=== PATIENT | female | born 1995 | race Hispanic/Latino ===

== ENCOUNTER 2018-11-15 11:53 | Observation (INO) | payer SELFPAY ==
[2018-11-15] MEDS ORDERED: HYDROCODONE/APAP 5/325 MG TAB ONE (12:39)
[2018-11-15] MEDS ORDERED: ONDANSETRON 4 MG/2 ML VIAL ONE (12:42)
[2018-11-15] MEDS ORDERED: MORPHINE 4 MG/ML SYR ONE (12:42)
[2018-11-15] MEDS ORDERED: NA CHLORIDE 0.9% 1,000 ML ONE (12:42)
[2018-11-15] MEDS ORDERED: CLINDAMYCIN 600MG/D5W 600 MG/50 ML BAG IV ONE (12:42)
--- NOTE | 2018-11-15 12:58 | ER ---
Nurse's Notes [facility] Name: Jennifer Lucia Age: 23 yrs Sex: Female : 1995 Arrival Date: 11/15/2018 Time: 11:55 Bed 15 Private MD: Diagnosis: Cutaneous abscess of vulva Presentation: 11/15 12:03 Presenting complaint: Patient states: Left sided labia pain and swelling, reports this sg started about 2 days ago, denies any bleeding or discharge, no urinary symptoms reported, pt denies any injury or trauma to the area. Transition of care: patient was not received from another setting of care. Onset of symptoms was November 15, 2018. Risk Assessment: Do you want to hurt yourself or someone else? Patient reports no desire to harm self or others. Initial Sepsis Screen: Does the patient meet any 2 criteria? HR > 90 bpm. Does the patient have a suspected source of infection? Yes: Skin breakdown/wound. Care prior to arrival: None. 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 - Social history:: Smoking status: Patient/guardian denies using tobacco. - Ebola Screening: : Patient negative for fever greater than or equal to 101.5 degrees Fahrenheit, and additional compatible Ebola Virus Disease symptoms Patient denies exposure to infectious person Patient denies travel to an Ebola-affected area in the 21 days before illness onset No symptoms or risks identified at this time. Screenin:05 Abuse screen: Denies threats or abuse. Nutritional screening: No deficits noted. rb1 Tuberculosis screening: No symptoms or risk factors identified. Fall Risk None identified. Assessment: 12:05 General: Appears uncomfortable, Behavior is calm, cooperative, Denies fever. Pain: rb1 Complains of pain in vaginal Pain currently is 3 out of 10 on a pain scale. Pain began . Neuro: Level of Consciousness is awake, alert, obeys commands, Oriented to person, place, time, situation. Cardiovascular: Capillary refill < 3 seconds is brisk in bilateral fingers. Respiratory: Airway is patent Respiratory effort is even, unlabored, Respiratory pattern is regular, symmetrical. GI: No signs and/or symptoms were reported involving the gastrointestinal system. : Reports vaginal pain and swelling, denies discharge. Derm: Skin is pink, warm \T\ dry. Musculoskeletal: Range of motion: intact in all extremities. 13:00 Reassessment: Patient appears in no apparent distress at this time. No changes from rb1 previously documented assessment. Family at bedside. 14:00 Reassessment: Patient appears in no apparent distress at this time. Patient and/or rb1 family updated on plan of care and expected duration. Pain level reassessed. Patient is alert, oriented x 3, equal unlabored respirations, skin warm/dry/pink. pain 0/10. 14:35 Reassessment: Tried to call report but they asked me if they could call me back because rb1 they weren't sure who was taking the pt. 14:53 Reassessment: Called report to DIOGENES Girard. Information from the [facility] was given. All rb1 questions asked and answered. 15:00 Reassessment: Patient appears in no apparent distress at this time. No changes from rb1 previously documented assessment. Family at bedside. Patient states feeling better. 15:10 Reassessment: Waiting for someone to be available to take the pt. to the floor. rb1 15:45 Reassessment: Patient appears in no apparent distress at this time. Patient and/or rb1 family updated on plan of care and expected duration. Pain level reassessed. Patient is alert, oriented x 3, equal unlabored respirations, skin warm/dry/pink. Patient denies pain at this time. Vital Signs: 12:06 BP 122 / 85; Pulse 134; Resp 17; Pulse Ox 100% on R/A; Weight 49.9 kg; Pain 7/10; sg 13:55 Temp 98.6(O); dh3 14:00 BP 105 / 76; Pulse 91; Resp 16; Pulse Ox 100% on R/A; Pain 0/10; rb1 15:00 BP 103 / 72; Pulse 88; Resp 16; Pulse Ox 100% on R/A; Pain 0/10; rb1 15:45 BP 100 / 70; Pulse 85; Resp 15; Pulse Ox 98% on R/A; Pain 0/10; rb1 ED Course: 11:55 Patient arrived in ED. as 11:59 Jayda Trujillo [facility]C [facility] kb 11:59 Javier Sidhu MD is Attending Physician. kb 12:03 Arm band placed on. sg 12:05 Patient has correct armband on for positive identification. Bed in low position. Call rb1 light in reach. Side rails up X 1. Pulse ox on. NIBP on. Warm blanket given. 12:06 Triage completed. sg 12:17 Kala Flores, DIOGENES is Primary Nurse. rb1 12:45 Inserted saline lock: 22 gauge in left antecubital area, using aseptic technique. Blood rb1 collected. 12:57 Arlene Valenzuela MD is Hospitalizing Provider. kb 13:03 Wound Culture Sent. rb1 15:45 No provider procedures requiring assistance completed. Patient admitted, IV remains in rb1 place. Administered Medications: 12:50 Drug: morphine 2 mg Route: IVP; Site: left antecubital; rb1 13:05 Follow up: Response: No adverse reaction; Pain is decreased rb1 12:50 Drug: Zofran 4 mg Route: IVP; Site: left antecubital; rb1 13:05 Follow up: Response: No adverse reaction; Nausea is decreased rb1 13:02 Not Given (Provider changed order): [place] 5 mg-325 mg 1 tabs PO once rb1 13:29 Drug: NS 0.9% 1000 ml Route: IV; Rate: 1000 ml; Site: left antecubital; rb1 14:44 Follow up: IV Status: Completed infusion; IV Intake: 1000ml rb1 14:35 Drug: Clindamycin 600 mg Route: IVPB; Infused Over: 30 mins; Site: left antecubital; rb1 15:45 Follow up: Response: No adverse reaction; IV Status: Infusion continued upon admission; rb1 Medication was put on hold due to blood cultures being added on Intake: 14:44 IV: 1000ml; Total: 1000ml. rb1 Outcome: 12:57 Decision to Hospitalize by Provider. kb 15:45 Patient left the ED. rb1 15:45 Admitted to Med/surg accompanied by tech, family with patient, via wheelchair, room rb1 202, with chart, Report called to DIOGENES Girard 15:45 Condition: stable 15:45 Instructed on the need for admit. Signatures: Jayda Trujillo FNP-C FNP-Ckb Adán Easley, RN RN sg Julieta Frazier Rebecca, RN RN rb1 Terri Jennings 3 Corrections: (The following items were deleted from the chart) 16:00 15:58 Patient left the ED. rb1 rb1
--- NOTE | 2018-11-15 12:58 | EDPHYS ---
Physician Documentation [facility] Name: Jennifer Lucia Age: 23 yrs Sex: Female : 1995 Arrival Date: 11/15/2018 Time: 11:55 Bed 15 Private MD: ED Physician Javier Sidhu HPI: 11/15 12:18 This 23 yrs old Female presents to ER via Ambulatory with complaints of kb Vaginal Pain. 12:18 The patient presents with swelling and pain to clitoris area. Onset: The kb symptoms/episode began/occurred 4 day(s) ago. Modifying factors: the symptoms are aggravated by pressure. Associated signs and symptoms: Pertinent positives: swelling and pain. Severity of symptoms: At their worst the symptoms were moderate, in the emergency department the symptoms are unchanged. The patient has not experienced similar symptoms in the past. The patient has not recently seen a physician. 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 - Social history:: Smoking status: Patient/guardian denies using tobacco. - Ebola Screening: : Patient negative for fever greater than or equal to 101.5 degrees Fahrenheit, and additional compatible Ebola Virus Disease symptoms Patient denies exposure to infectious person Patient denies travel to an Ebola-affected area in the 21 days before illness onset No symptoms or risks identified at this time. ROS: 12:17 Constitutional: Negative for fever, chills, and weight loss, Cardiovascular: Negative kb for chest pain, palpitations, and edema, Respiratory: Negative for shortness of breath, cough, wheezing, and pleuritic chest pain, Abdomen/GI: Negative for abdominal pain, nausea, vomiting, diarrhea, and constipation, Back: Negative for injury and pain, MS/Extremity: Negative for injury and deformity, Neuro: Negative for headache, weakness, numbness, tingling, and seizure. 12:17 Skin: Positive for abscess, of the prepuce and clitoris. Exam: 12:17 Constitutional: This is a well developed, well nourished patient who is awake, alert, kb and in no acute distress. Head/Face: Normocephalic, atraumatic. Chest/axilla: Normal chest wall appearance and motion. Nontender with no deformity. No lesions are appreciated. Cardiovascular: Regular rate and rhythm with a normal S1 and S2. No gallops, murmurs, or rubs. Normal PMI, no JVD. No pulse deficits. Respiratory: Lungs have equal breath sounds bilaterally, clear to auscultation and percussion. No rales, rhonchi or wheezes noted. No increased work of breathing, no retractions or nasal flaring. Abdomen/GI: Soft, non-tender, with normal bowel sounds. No distension or tympany. No guarding or rebound. No evidence of tenderness throughout. MS/ Extremity: Pulses equal, no cyanosis. Neurovascular intact. Full, normal range of motion. Neuro: Awake and alert, GCS 15, oriented to person, place, time, and situation. Cranial nerves II-XII grossly intact. Motor strength 5/5 in all extremities. Sensory grossly intact. Cerebellar exam normal. Normal gait. 12:17 Skin: abscess, that is large, with drainage, that is purulent, with fluctuance, that is moderate. Vital Signs: 12:06 BP 122 / 85; Pulse 134; Resp 17; Pulse Ox 100% on R/A; Weight 49.9 kg; Pain 7/10; sg 13:55 Temp 98.6(O); dh3 14:00 BP 105 / 76; Pulse 91; Resp 16; Pulse Ox 100% on R/A; Pain 0/10; rb1 15:00 BP 103 / 72; Pulse 88; Resp 16; Pulse Ox 100% on R/A; Pain 0/10; rb1 15:45 BP 100 / 70; Pulse 85; Resp 15; Pulse Ox 98% on R/A; Pain 0/10; rb1 MDM: 12:04 Patient medically screened. 12:17 Data reviewed: vital signs, nurses notes. Data interpreted: Pulse oximetry: on room air kb is 100 %. Interpretation: normal. 12:20 Physician consultation: Arlene Valenzuela MD was contacted at 12:20, regarding consult, kb patient's condition, and will see patient in ED, shortly. 12:55 Counseling: I had a detailed discussion with the patient and/or guardian regarding: the kb historical points, exam findings, and any diagnostic results supporting the discharge/admit diagnosis, the need for further work-up and treatment in the hospital. Physician consultation: Arlene Valenzuela MD in the emergency department to see patient at 12:56. 11/15 12:22 Order name: Wound Culture 11/15 12:59 Order name: CBC with Diff; Complete Time: 13:53 kb 11/15 12:59 Order name: CMP; Complete Time: 14:54 kb 11/15 12:59 Order name: Hemoglobin A1c 11/15 12:59 Order name: TSH; Complete Time: 14:54 kb 11/15 12:59 Order name: T4 Free; Complete Time: 14:54 kb 11/15 13:05 Order name: HIV (1 EDMS 11/15 13:34 Order name: Urine Culture 11/15 13:34 Order name: Urine Microscopic Only 11/15 13:34 Order name: Blood Culture Adult (2) 11/15 12:30 Order name: IV Start; Complete Time: 13:03 kb Administered Medications: 12:50 Drug: morphine 2 mg Route: IVP; Site: left antecubital; rb1 13:05 Follow up: Response: No adverse reaction; Pain is decreased rb1 12:50 Drug: Zofran 4 mg Route: IVP; Site: left antecubital; rb1 13:05 Follow up: Response: No adverse reaction; Nausea is decreased rb1 13:02 Not Given (Provider changed order): [place] 5 mg-325 mg 1 tabs PO once rb1 13:29 Drug: NS 0.9% 1000 ml Route: IV; Rate: 1000 ml; Site: left antecubital; rb1 14:44 Follow up: IV Status: Completed infusion; IV Intake: 1000ml rb1 14:35 Drug: Clindamycin 600 mg Route: IVPB; Infused Over: 30 mins; Site: left antecubital; rb1 15:45 Follow up: Response: No adverse reaction; IV Status: Infusion continued upon admission; rb1 Medication was put on hold due to blood cultures being added on Disposition: 11/16 07:02 Co-signature as Attending Physician, Javier Sidhu MD. rn Disposition: 11/15/18 12:57 Hospitalization ordered by Arlene Valenzuela for Observation. Preliminary diagnosis is Cutaneous abscess of vulva. - Bed requested for Telemetry/MedSurg (observation). - Status is Observation. rb1 - Condition is Stable. - Problem is new. - Symptoms are unchanged. UTI on Admission? No Signatures: Dispatcher [employer] EDMS Jayda Trujillo, VEST BUSHELER-C VEST BUSHELER-Adán Rascon, RN RN sg Javier Sidhu MD MD rn Barber, Rebecca RN RN rb1 Jennyfer Yang, RN RN df Corrections: (The following items were deleted from the chart) 11/15 13:22 12:57 Hospitalization Ordered by Arlene Valenzuela MD for Observation. Preliminary diagnosis df is Cutaneous abscess of vulva. Bed requested for Telemetry/MedSurg (observation). Status is Observation. Condition is Stable. Problem is new. Symptoms are unchanged. UTI on Admission? No. kb 15:58 13:22 11/15/2018 12:57 Hospitalization Ordered by Arlene Valenzuela MD for Observation. rb1 Preliminary diagnosis is Cutaneous abscess of vulva. Bed requested for Telemetry/MedSurg (observation). Status is Observation. Condition is Stable. Problem is new. Symptoms are unchanged. UTI on Admission? No. df
[2018-11-15 13:47] LABS: Absolute Lymphocytes (CBC) 1.3 K/uL (0.7-4.9); Absolute Neutrophil 8.7 K/uL (1.8-8.0); Basophils % 0.3 % (0-1.3); Eosinophils % 0.1 % (0-4.4); Hematocrit 35.7 % (36.0-45.0); Lymphocytes % 11.8 % (15.3-44.8); MPV 9.6 fL (7.6-11.3); Monocytes % 8.9 % (3.3-12.3); RBC Red Blood Cell Count 4.03 M/uL (3.86-4.86)
--- NOTE | 2018-11-15 14:17 | P.CNS ---
Date of Consult: 11/15/18 Reason for Consult: Medical Management Requesting Physician: Tom Valenzuela Primary Care Provider: none Chief Complaint: Clitoral abscess History of Present Illness: 23-year-old female presented to the emergency room with pain to the clitoral region. Patient was evaluated in the emergency room. Patient seen by gynecology admitted for treatment. Patient found to have clitoral abscess. I was consulted for medical management. Patient reports pain to the clitoral region over the last 3 days. Patient denies any prior sex. She still a virgin. She has never had any pregnancies. Patient with childhood asthma. She does not take any medication on a regular basis. Patient is very thin and appears malnourished. Antibiotics have been started. Cultures obtained. Patient appears stable at this time. She is without significant complaint. Pain under control. Family at bedside. Family reports that the patient has been thin most of her life. There is some question of possible thyroid disease. Patient reports supplementing her nutrition with over the counter supplementation. Home medications list reviewed: Yes - Past Medical/Surgical History Diabetic: No -: Childhood asthma -: Malnutrition Past Surgical History: Patient denies surgical history Psychosocial/ Personal History: Patient is single. Lives with family. - Family History Father Family History: Reviewed- Non-Contributory - Social History Smoking Status: Never smoker Alcohol use: No CD- Drugs: No Caffeine use: No Place of Residence: Home Review of Systems General: As per HPI Eyes: Unremarkable ENT: Unremarkable Respiratory: Unremarkable Cardiovascular: Unremarkable Gastrointestinal: Unremarkable Genitourinary: Unremarkable Musculoskeletal: Unremarkable Integumentary: As per HPI Neurological: Unremarkable Lymphatics: Unremarkable Physical Examination General: Alert, In no apparent distress, Oriented x3, Cooperative, Cachectic, Other (Patient appears malnourished) HEENT: Atraumatic, Normocephalic, PERRLA, Mucous membr. moist/pink Neck: Supple, No Thyromegaly Respiratory: Clear to auscultation bilaterally, Normal air movement Cardiovascular: Abnormal pulses (Sinus tachycardia) Gastrointestinal: Normal bowel sounds, Soft and benign, Non-distended, No tenderness, No masses, No rebound, No guarding Musculoskeletal: No erythema, No tenderness, No warmth Integumentary: Other (Clitoral enlargement with erythema) Neurological: Normal speech, Normal strength at 5/5 x4 extr, Normal tone, Normal affect Conclusions/Impression: Impression: Clitoral abscess Dehydration Mild anemia likely iron deficiency Moderate malnutrition Plan: Clitoral abscess: The patient will be admitted by gynecology. Patient started on clindamycin. Will obtain blood and urine culture. Wound culture to be obtained. Will follow along with gynecology. Will check to see if the patient will require gynecological intervention. Dehydration: Will start IV fluids. Patient with mild tachycardia Mild anemia likely iron deficiency: Will evaluate for iron deficiency. Moderate malnutrition: Will evaluate lab including tsh. Will start Ensure 3 times a day. Will consider nutrition consult. Time Spent Managing Pts care (In Minutes): 55
[2018-11-15 14:54] LABS: ALT/SGPT 19 U/L (12-78); AST/SGOT 15 U/L (15-37); Albumin 3.7 g/dL (3.4-5.0); Alkaline Phosphatase 77 U/L (45-117); BUN Blood Urea Nitrogen 8 mg/dL (7-18); Bicarbonate 28 mmol/L (21-32); Bilirubin Total 0.4 mg/dL (0.2-1.0); Glucose Level 93 mg/dL (74-106); Potassium 3.6 mmol/L (3.5-5.1); Protein, Total 7.3 g/dL (6.4-8.2); Sodium Level 141 mmol/L (136-145)
--- NOTE | 2018-11-15 15:36 | P.OBGYNHP ---
Certification for Inpatient Patient admitted to: Observation With expected LOS: <2 Midnights Patient will require the following post-hospital care: None Practitioner: I am a practitioner with admitting privileges, knowledge of patient current condition, hospital course, and medical plan of care. Services: Services provided to patient in accordance with Admission requirements found in Title 42 Section 412.3 of the Code of Federal Regulations Patient History Date of Service: 11/15/18 Primary Care Provider: none Reason for admission: Clitoral abscess History of Present Illness: Patient is a 23 y/o G0 LMP 10/09/18 who presented to the emergency department with c/o vaginal burning and pain. She statest that this started on Saturday and she felt some swelling in the upper part of her vagina. She denies irregular bleeding. She states that she is having a normal amount of vaginal itching. She denies irregular menses. She states she has never been sexually active. She denies any medical issues. however she has not seen a doctor in some time. She states that when she did they told her about some thyroid issues but she didn't need any medications. She is very underweight but states there haven't been any medical issues contributing to this. She denies fever or chills. Denies dizziness or shortness of breath. Allergies No Known Allergies Allergy (Verified 11/15/18 15:52) - Past Medical/Surgical History Diabetic: No -: Childhood asthma -: Malnutrition Past Surgical History: Patient denies surgical history Psychosocial/ Personal History: Patient is single. Lives with family. - Social History Smoking Status: Never smoker Alcohol use: No CD- Drugs: No Caffeine use: No Place of Residence: Home Review of Systems 10-point ROS is otherwise unremarkable Physical Examination - Vital Signs Blood Pressure: 122/85 Pulse: 134 Respirations: 18 - General General: Alert, Oriented x3, Mild distress HEENT: Atraumatic, Other (poor dentition) Neck: Supple Respiratory: Normal air movement Cardiovascular: No edema, Normal pulses Breasts: Normal contours Gastrointestinal: Soft and benign Musculoskeletal: No clubbing, No swelling Integumentary: No rashes, No breakdown Neurological: Normal speech - Female Pelvic External genitalia: Other (bilateral labia slightly erythematous, discharge presents; clitoris extremely enlarged 3-4cm in size and indurated, there is a small openning at the bottom and it is draining creamy pus with an odor) Cervix: Other (not examined) Uterus: Other (not examined) Assessment and Plan - Plan 23 y/o G0 LMP 10/09/18 who presents with a clitoral abscess. It has been drained and cultures sent. Medicine consulted to rule out any underlying medical issues. Clindamycin IV being administered. Regular diet. Will reassess wound. If improved with discharge home with oral antibiotics. - Advance Directives Does patient have a Living Will: No Does patient have a Durable POA for Healthcare: No
[2018-11-15] MEDS ORDERED: ACETAMINOPHEN 500 MG TAB PO PRN (15:53)
[2018-11-15] MEDS ORDERED: ONDANSETRON 4 MG/2 ML VIAL IV PRN (15:53)
[2018-11-15] MEDS ORDERED: IBUPROFEN 400 MG TAB PO PRN (15:53)
[2018-11-15] MEDS: NA CHLORIDE 0.9% 1,000 ML IV SCH ×2 (15:53→23:58)
[2018-11-15] MEDS ORDERED: MORPHINE 4 MG/ML SYR IV PRN (15:53)
[2018-11-15 16:18] VITALS: BMI 14.7
[2018-11-15 17:01] LABS: Ferritin 11.7 ng/mL (8-388)
[2018-11-15] MEDS: CLINDAMYCIN INJ 300 MG in NA CHLORIDE 0.9% 50 ML IV SCH ×2 (17:40→23:58)
[2018-11-15] MEDS ORDERED: INFLUENZA VACCINE (for 3y+) 0.5 ML DOSE IMVAC ONE (19:00)
[2018-11-15] MEDS: ENSURE HIGH PROTEIN 237 ML CAN PO SCH (22:10)
[2018-11-16 01:53] LABS: Urine Amorphous Sediment 3+ /HPF (NONE SEEN); Urine Bacteria <20 /HPF (<20); Urine Culture Reflex Order NOT NEEDED; Urine RBC NONE SEEN /HPF (NONE SEEN)
[2018-11-16] MEDS: CLINDAMYCIN INJ 300 MG in NA CHLORIDE 0.9% 50 ML IV SCH ×2 (05:39→12:00)
[2018-11-16 06:00] LABS: BUN Blood Urea Nitrogen 10 mg/dL (7-18); Bicarbonate 25 mmol/L (21-32); Glucose Level 95 mg/dL (74-106); Potassium 3.8 mmol/L (3.5-5.1); Sodium Level 141 mmol/L (136-145)
[2018-11-16 06:07] LABS: Absolute Lymphocytes (CBC) 1.9 K/uL (0.7-4.9); Absolute Monocytes 0.6 K/uL (0.1-1.3); Absolute Neutrophil 3.5 K/uL (1.8-8.0); Basophils % 0.4 % (0-1.3); Eosinophils % 1.7 % (0-4.4); Hematocrit 30.9 % (36.0-45.0); MPV 9.6 fL (7.6-11.3); Monocytes % 9.3 % (3.3-12.3); RBC Red Blood Cell Count 3.48 M/uL (3.86-4.86)
[2018-11-16 08:38] VITALS: O2SAT 99
[2018-11-16] MEDS: ENSURE HIGH PROTEIN 237 ML CAN PO SCH ×2 (08:51→14:00)
[2018-11-16] MEDS ORDERED: DOCUSATE NA 100 MG CAP PO SCH (09:00)
[2018-11-16] MEDS ORDERED: FERROUS SULFATE 325 MG TAB PO SCH (09:00)
[2018-11-16] MEDS ORDERED: CYANOCOBALAMIN 1,000 MCG TAB PO SCH (09:00)
--- NOTE | 2018-11-16 09:47 | P.PN ---
Subjective Date of Service: 11/16/18 Primary Care Provider: none Chief Complaint: Clitoral abscess Subjective: Doing well (Patient doing well. No complaints noted. Pain to the clitoral region improved.) Physical Examination - Vital Signs Temperature: 97.8 F Blood Pressure: 103/62 Pulse: 92 Respirations: 12 Pulse Ox (%): 100 - Physical Exam General: Alert, In no apparent distress, Oriented x3, Cooperative HEENT: Atraumatic Neck: Supple Respiratory: Clear to auscultation bilaterally, Normal air movement Cardiovascular: Normal pulses, Regular rate/rhythm Gastrointestinal: Normal bowel sounds, Soft and benign, Non-distended, No tenderness, No masses, No rebound, No guarding Musculoskeletal: No erythema, No tenderness, No warmth Neurological: Normal speech, Normal strength at 5/5 x4 extr, Normal tone External genitalia: Other (Clitoris enlarged. Pain improved.) - Studies Medications List Reviewed: Yes Assessment & Plan Discharge Plan: Home Plan to discharge in: 24 Hours Physician Review Additional Text: Impression: Clitoral abscess status post bedside I and D Dehydration Mild anemia likely iron deficiency Moderate malnutrition Plan: Clitoral abscess status post bedside I and D: Patient appears to be improved. Patient on IV clindamycin. Blood and wound culture obtained. Await final results. Await further recommendations from gynecology. From a medical standpoint patient can possibly be discharged and followed up by gynecology or wait on wound cultures prior to discharge. I will turn the service over to Dr. Villalobos tomorrow. I will go over the plan of care with her. Dehydration: Continue IV fluids. Will Dc IV fluids if taking good oral intake. Mild anemia likely iron and vitamin-B 12 deficiency: Will continue with iron and B12 supplementation. Moderate malnutrition: Tsh unremarkable. Continue with Ensure 3 times a day. Encourage increase oral intake. This can be followed up as an outpatient. Time Spent Managing Pts Care (In Minutes): 55
[2018-11-16] MEDS ORDERED: HYDROCODONE/APAP 7.5/325 MG TAB PO PRN (09:48)
[2018-11-16] MEDS ORDERED: TRAMADOL HCL 50 MG TAB PO PRN (09:48)
[2018-11-16] MEDS: NA CHLORIDE 0.9% 1,000 ML IV SCH (11:53)
[2018-11-16 12:25] VITALS: BP 105/66; TEMP 99.3
--- NOTE | 2018-11-16 16:45 | P.DS ---
Admission Date: 11/15/18 Discharge Date: 11/16/18 Primary Care Provider: none Disposition: ROUTINE DISCHARGE Reason for Admission: Clitoral abscess Brief History of Present Illness: Patient is a 23 y/o G0 LMP 10/09/18 who presented to the emergency department with c/o vaginal burning and pain. She statest that this started on Saturday and she felt some swelling in the upper part of her vagina. She denies irregular bleeding. She states that she is having a normal amount of vaginal itching. She denies irregular menses. She states she has never been sexually active. She denies any medical issues. however she has not seen a doctor in some time. She states that when she did they told her about some thyroid issues but she didn't need any medications. She is very underweight but states there haven't been any medical issues contributing to this. She denies fever or chills. Denies dizziness or shortness of breath. Hospital Course: Patient has been doing well. She was kept for observation and given IV antibiotic for 23 hours. Her condition has improved. She does not have an increased WBC count and has been aebrile. She states her pain has improved. She denies further drainage. Vaginal culture reveals gram negative rods. Discussed hygiene issues with patient. Vital Signs/Physical Exam: Temp Pulse Resp BP Pulse Ox 99.3 F 98 H 12 105/66 100 11/16/18 12:00 11/16/18 12:00 11/16/18 12:00 11/16/18 12:00 11/16/18 12:00 General: Alert, In no apparent distress HEENT: Atraumatic Neck: Supple Respiratory: Normal air movement Cardiovascular: No edema, Normal pulses Gastrointestinal: Soft and benign Musculoskeletal: No clubbing, No swelling Integumentary: No rashes, No breakdown Neurological: Normal gait, Normal speech External genitalia: Other (clitoris is still enlarged, no longer draining, not fluctuant ) Laboratory Data at Discharge: WBC 6.1 K/uL (4.3-10.9) D 11/16/18 05:05 Hgb 10.3 g/dL (12.0-15.0) L 11/16/18 05:05 Hct 30.9 % (36.0-45.0) L 11/16/18 05:05 Plt Count 232 K/uL (152-406) 11/16/18 05:05 Sodium 141 mmol/L (136-145) 11/16/18 05:05 Potassium 3.8 mmol/L (3.5-5.1) 11/16/18 05:05 BUN 10 mg/dL (7-18) 11/16/18 05:05 Creatinine 0.37 mg/dL (0.55-1.3) L 11/16/18 05:05 Glucose 95 mg/dL (74-106) 11/16/18 05:05 Total Bilirubin 0.4 mg/dL (0.2-1.0) 11/15/18 13:29 AST 15 U/L (15-37) 11/15/18 13:29 ALT 19 U/L (12-78) 11/15/18 13:29 Alkaline Phosphatase 77 U/L (45-117) 11/15/18 13:29 Home Medications: Clindamycin HCl [Cleocin HCl] 300 mg PO QID #28 capsule 11/16/18 Diclofenac Sodium 50 mg PO TID PRN #30 tablet. 11/16/18 New Medications: Clindamycin HCl [Cleocin HCl] 300 mg PO QID #28 capsule Diclofenac Sodium 50 mg PO TID PRN #30 tablet. PRN Reason: Pain Diet: Regular Activity: Ad rosalba Followup: Tom Valenzuela DO [ACTIVE - CAN ADMIT] - 11/24/18
[2018-11-19 16:50] LABS: HIV 1/2 Antibody Diff Not indicated.; HIV AG/AB 4TH GEN Non-reactive (Non-reactive)
== END 2018-11-16 16:12 | disposition home or self-care (01) ==
LOC: ER 11:53 → ERHOLD 13:03 → 2ND 14:59
PROVIDERS: ADMIT Student in an Organized Health Care Education/Training Program; ATTEND Student in an Organized Health Care Education/Training Program
DX: N76.4 Abscess of vulva (principal); E86.0 Dehydration; D64.9 Anemia, unspecified; E46 Unspecified protein-calorie malnutrition; Z68.1 Body mass index [BMI] 19.9 or less, adult; Z23 Encounter for immunization
CPT/HCPCS: 36415; 80048; 80053; 81015; 82607; 82728; 83540; 84439; 84443; 84466; 85025; 87040; 87070; 87086; 87088; 87205; 87389; 96361; 96365; 96375; 99285; G0008; G0378; J2405; J7030; Q2035